=== PATIENT | male | born 1980 | race Caucasian/White ===

== ENCOUNTER 2017-09-04 12:24 | Emergency (ER) | payer MEDICAID ==
[2017-09-04 12:55] VITALS: RESP 16
[2017-09-04 13:06] LABS: PLATELET COUNT 208 10^3/uL (150-400)
[2017-09-04] MEDS ORDERED: chlordiazePOXIDE 25 MG CAP PO ONE (13:26)
--- NOTE | 2017-09-04 17:56 | EDPHY ---
H & P Stated Complaint: SI/meth and etoh - Personal History Current Tetanus/Diphtheria Vaccine: Unsure Current Tetanus Diphtheria and Acellular Pertussis (TDAP): Unsure - Medical/Surgical History Hx Asthma: No Hx Chronic Respiratory Disease: No Hx Diabetes: No Hx Cardiac Disease: No Hx Renal Disease: No Hx Cirrhosis: No Hx Alcoholism: Yes Hx HIV/AIDS: No Hx Splenectomy or Spleen Trauma: No Other PMH: spinal fusion, anxiety, depression, alcohol and polysubstance abuse - Social History Smoking Status: Heavy smoker Time Seen by Provider: 09/04/17 13:20 HPI/ROS: Chief complaint: Suicidal ideation History of present illness: This is a 37-year-old male who presents to the emergency department for suicidal ideation. He reports he has a problem with methamphetamine use and alcohol use. He most recently used methamphetamines this morning and alcohol last night. Any time he stops using them he starts to feel very unwell and becomes suicidal. Patient admits to suicidal ideation with plan to overdose on pills. Denies homicidal ideation. He denies current illness or injury. Review of systems: 10 point review of systems was obtained and other than described above. (Marshal Galan) - Physical Exam Exam: General Appearance: Alert, no distress. Eyes: Pupils equal and round no pallor or injection. ENT, Mouth: Mucous membranes moist. Respiratory: There are no retractions, lungs are clear to auscultation. Cardiovascular: Regular rate and rhythm. Gastrointestinal: Abdomen is soft and non tender, no masses, bowel sounds normal. Neurological: Alert. Strength and sensation intact and symmetrical. Skin: Warm and dry, no rashes. Musculoskeletal: Neck is supple non tender. Extremities are symmetrical, full range of motion. Psychiatric: Patient is oriented X 3, there is no agitation. (Marshal Galan) Constitutional: Initial Vital Signs Temperature (C) 36.6 C 09/04/17 12:25 Heart Rate 95 09/04/17 12:25 Respiratory Rate 16 09/04/17 12:25 Blood Pressure 126/82 H 09/04/17 12:25 O2 Sat (%) 94 09/04/17 12:25 O2 Delivery Mode Room Air Allergies/Adverse Reactions: No Known Allergies Allergy (Unverified 09/04/17 12:45) Home Medications: Medication Instructions Recorded Neurontin 09/04/17 Paxil 11/04/17 Medical Decision Making ED Course/Re-evaluation: Patient's care turned over to me primarily at 5:00 p.m.. This patient is awaiting behavioral health evaluation. The patient had has a history of methamphetamine abuse and alcohol abuse. When he is coming off of these and losing his high he becomes depressed and talks about suicide. He is to be evaluated by [facility]. 9:00 p.m., the patient still awaits evaluation by [facility]. There have been no issues during my shift. His care was turned over to Dr. Jose Briceno at 9:00 p.m.. ([place]) 4:00 a.m.- The [facility]. He is asking for help for his alcohol use. He will be given a Librium pill pack. He has been evaluated by [facility] and they have reported that they will eventually try to get him into a crisis stabilization unit once a day is out of acute alcohol withdrawal. (Richelle Magaña) - Data Points Laboratory Results: Laboratory Results 09/04/17 12:24 09/04/17 12:24 Medications Given: Discontinued Medications Chlordiazepoxide (Librium 25 Mg Prepack#6) 1 btl TAKEHOME EDNOW ONE Stop: 09/05/17 04:08 Last Admin: 09/05/17 04:30 Dose: 1 btl Chlordiazepoxide HCl (Librium) 50 mg PO EDNOW ONE Stop: 09/04/17 13:27 Last Admin: 09/04/17 13:32 Dose: 50 mg Chlordiazepoxide HCl (Librium) 25 mg PO EDNOW ONE Stop: 09/05/17 04:09 Last Admin: 09/05/17 04:08 Dose: 25 mg Departure - Departure Disposition: Home, Routine, Self-Care Clinical Impression: Situational depression, Polysubstance abuse Condition: Good Instructions: Chlordiazepoxide/Clidinium (By mouth), Depression (ED) Referrals: [facility] [Outside] - As per Instructions
[2017-09-05] MEDS ORDERED: CHLORDIAZEPOXIDE 25MG PREPK#6 BTL TAKEHOME ONE (04:07)
[2017-09-05] MEDS ORDERED: chlordiazePOXIDE 25 MG CAP PO ONE (04:08)
[2017-09-05] MEDS ORDERED: ONDANSETRON DISINTEGRATING 4 MG TAB ONE (04:23)
[2017-09-05] MEDS ORDERED: chlordiazePOXIDE 25 MG CAP ONE (04:28)
[2017-09-05 04:37] VITALS: BP 115/68; PULSE 80; TEMP 97.7; O2SAT 96
--- NOTE | 2017-09-06 10:13 | ASDISCHSUM ---
Discharge Information Plan Status:Home with No Needs Medically Cleared to Leave: Discharge Date:09/05/2017 04:36 AM CM D/C Disposition:Other (Not listed) ADT D/C Disposition:Home, Routine, Self-Care Projected Discharge Date:09/05/2017 04:36 AM Transportation at D/C:Cab Voucher Discharge Delay Reason: Follow-Up Date:09/05/2017 04:36 AM Discharge Slot: Final Diagnosis: Placement Information Patient Contact Information Contact Name:ADILIA Relationship:Mother Address: Work Phone: City: [facility] Phone: State/Zip Code: Email: Financial Information Financial Class: Primary Plan 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 Emergency dept visits in Answers: 1 last 6 months Score: 1 Date Signed: 09/06/2017 10:11 AM Electronically Signed By:Jeanette Christie RN Intervention Information
--- NOTE | 2017-09-06 10:13 | ASDISCHSUM ---
Discharge Information Plan Status:Home with No Needs Medically Cleared to Leave: Discharge Date:09/05/2017 04:36 AM CM D/C Disposition:Other (Not listed) ADT D/C Disposition:Home, Routine, Self-Care Projected Discharge Date:09/05/2017 04:36 AM Transportation at D/C:Cab Voucher Discharge Delay Reason: Follow-Up Date:09/05/2017 04:36 AM Discharge Slot: Final Diagnosis: Placement Information Patient Contact Information Contact Name:ADILIA Relationship:Mother Address: Work Phone: City: [facility] Phone: State/Zip Code: Email: Financial Information Financial Class: Primary Plan 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 Emergency dept visits in Answers: 1 last 6 months Score: 1 Date Signed: 09/06/2017 10:11 AM Electronically Signed By:Jeanette Christie RN Intervention Information
--- NOTE | 2017-09-06 10:13 | ASDISCHSUM ---
Discharge Information Plan Status:Home with No Needs Medically Cleared to Leave: Discharge Date:09/05/2017 04:36 AM CM D/C Disposition:Other (Not listed) ADT D/C Disposition:Home, Routine, Self-Care Projected Discharge Date:09/05/2017 04:36 AM Transportation at D/C:Cab Voucher Discharge Delay Reason: Follow-Up Date:09/05/2017 04:36 AM Discharge Slot: Final Diagnosis: Placement Information Patient Contact Information Contact Name:ADILIA Relationship:Mother Address: Work Phone: City: [facility] Phone: State/Zip Code: Email: Financial Information Financial Class: Primary Plan 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 Emergency dept visits in Answers: 1 last 6 months Score: 1 Date Signed: 09/06/2017 10:11 AM Electronically Signed By:Jeanette Christie RN Intervention Information
== END 2017-09-05 04:36 | disposition home or self-care (01) ==
DX: R45.851 Suicidal ideations (principal); F32.9 Major depressive disorder, single episode, unspecified; F19.10 Other psychoactive substance abuse, uncomplicated; F17.200 Nicotine dependence, unspecified, uncomplicated
CPT/HCPCS: 80305; G0480